=== PATIENT | female | born 1935 | race Caucasian/White ===

== ENCOUNTER → 2016-09-07 | Outpatient (CLI) | payer MEDICARE, OTHER ==
[~2016-09-07] MED LIST: ACIPHEX20 MG PO; AEROBID INHALER7 GM IH; ALBUTEROL0.09 MG/A1 IH; ALLOPURINOL300 MG PO; ANUSOL HC CREAM30 GM TP; AQUADEKS PO; ARICEPT 5MG PO; ASPIRIN E.C. 8181 MG PO; BENICAR HCT 251 TAB PO; BENICAR40 MG PO; BETA CAROTENE; BETA CAROTENE PO; BONIVA1 MG/ML MR; BONIVA150 MG PO; CARDIZEM CD 24240 MG PO; CATAPRES 0.1MG0.1 MG PO; CELEBREX 200MG200 MG PO; CENTRUM SILVER1 CTB PO; CENTRUM SILVER1 TA1 PO; CENTRUM SILVER1 TAB PO; CENTRUM1 TA1 PO; CEPHALEXIN500 M1 PO; COLACE 100100 MG/CAP PO; COMPLETE SENIOR1 TA1 PO; CRANBERRY FRUI405 MG PO; CYMBALTA 60MG60 MG PO; FENTANYL 25 MCG TOP; FENTANYL 50MCG TOP; FENTANYL 75MCG TD; FERRO-TIME325 MG PO; FERROUS SULFAT325 M2 PO; FISH OIL SUPER1 SGL PO; FISH OIL500 MG PO; FOLIC ACID 40400 MCG PO; GARLIC OIL 101000 MG PO; GARLIC SUPPLEM300 MG; HYZAAR 25 MG-101 TAB PO; IRON325 M1 PO; K-TAB20 PO; LASIX 20MG TABL20 MG PO; LIPITOR 10MG10 MG PO; LOTREL 10 MG-201 CAP PO; MILK OF MA400 MG/5 M PO; MIRALAX PA17 GM/Dose PO; MULTAQ400 MG PO; NEPHRO-VITE1 TA1 PO; NORCO 325 MG-101 TAB PO; NORCO 325 MG-7.1 TAB PO; NORVASC 5MG5 MG/TAB PO; PERCOCET 325 MG1 TA2 PO; PERCOCET 325 MG1 TAB PO; PHENERGAN 25 TA25 MG PO; PLAVIX 75MG TAB75 MG PO; PREMARIN .3MG0.3 MG PO; PREMARIN 0.60.625 M1 PO; PREMARIN 0.60.625 MG PO; PREMARIN VAG42.5 GM VG; PRILOSEC 20MG20 MG PO; PROAIR HFA0.09 MG/AC IH; PULMICORT180 MCG/Ac IH; QUALITY CHOICE325 MG; ROXICODONE 55 MG/TAB PO; THERAGRAN1 TA1 PO; TOPROL XL 50MG50 MG PO; TOPROL XL100 MG PO; TYLENOL 325MG325 MG PO; TYLENOL 500MG500 MG PO; ULTRAM 50MG TAB50 MG PO; VENTOLIN0.09 MG IH; VESICARE 5MG5 MG PO; VITAMIN C500 MG PO; XARELTO15 MG PO; ZOVIRAX800 MG PO; ZYLOPRIM 300MG300 MG PO
== END ==
LOC: COL.RAD 10:12
DX: M41.86 Other forms of scoliosis, lumbar region (principal); Z98.1 Arthrodesis status; R93.7 Abnormal findings on diagnostic imaging of other parts of musculoskeletal system
CPT/HCPCS: A9585

== ENCOUNTER 2016-09-21 14:45 | Outpatient (RCR) | payer MEDICARE, OTHER ==
[~2016-09-21 14:45] MED LIST changes: -ARICEPT 5MG PO; -BENICAR HCT 251 TAB PO; -BENICAR40 MG PO; -CATAPRES 0.1MG0.1 MG PO; -CENTRUM SILVER1 TAB PO; -CENTRUM1 TA1 PO; -FERRO-TIME325 MG PO; -NORVASC 5MG5 MG/TAB PO; -TOPROL XL100 MG PO; -TYLENOL 500MG500 MG PO; -VESICARE 5MG5 MG PO; -ZOVIRAX800 MG PO
[2016-09-23] MEDS ORDERED: ZOVIRAX800 MG PO (07:40)
[2016-09-23] MEDS ORDERED: CENTRUM1 TA1 PO (08:55)
[2016-09-23] MEDS ORDERED: NORVASC 5MG5 MG/TAB PO (08:56)
== END 2016-10-22 11:39 | disposition home or self-care (01) ==
LOC: WSPT 14:45
DX: Z47.89 Encounter for other orthopedic aftercare (principal); Z98.1 Arthrodesis status; M25.871 Other specified joint disorders, right ankle and foot
CPT/HCPCS: G8978-GP; G8979-GP; G8984-GP; G8985-GP; G8986-GP

== ENCOUNTER 2016-09-23 06:40 | Emergency (ER) | payer MEDICARE, OTHER ==
[~2016-09-23] VITALS: Ht 152.4 cm; Wt 70.0 kg
[2016-09-23 06:44] VITALS: BP 185/81; TEMP 98
[2016-09-23] MEDS ORDERED: ZOVIRAX800 MG PO (07:40)
[2016-09-23 07:59] VITALS: PULSE 62
[2016-09-23] MEDS ORDERED: CENTRUM1 TA1 PO (08:55)
[2016-09-23] MEDS ORDERED: NORVASC 5MG5 MG/TAB PO (08:56)
== END 2016-09-23 07:59 | disposition home or self-care (01) ==
LOC: COL.ER 06:40
DX: B02.9 Zoster without complications (principal)

== ENCOUNTER → 2016-11-15 | Outpatient (CLI) | payer MEDICARE, OTHER ==
[~2016-11-15] MED LIST changes: +ARICEPT 5MG PO; +BENICAR HCT 251 TAB PO; +BENICAR40 MG PO; +CATAPRES 0.1MG0.1 MG PO; +CENTRUM SILVER1 TAB PO; +CENTRUM1 TA1 PO; +FERRO-TIME325 MG PO; +NORVASC 5MG5 MG/TAB PO; +TOPROL XL100 MG PO; +TYLENOL 500MG500 MG PO; +VESICARE 5MG5 MG PO; +ZOVIRAX800 MG PO
== END ==
LOC: MC.RAD 09:47
DX: Z12.31 Encounter for screening mammogram for malignant neoplasm of breast (principal); R92.1 Mammographic calcification found on diagnostic imaging of breast

== ENCOUNTER 2016-12-26 14:30 | Outpatient (RCR) | payer MEDICARE, OTHER ==
[~2016-12-26 14:30] MED LIST changes: -ARICEPT 5MG PO; -BENICAR HCT 251 TAB PO; -BENICAR40 MG PO; -CATAPRES 0.1MG0.1 MG PO; -CENTRUM SILVER1 TAB PO; -FERRO-TIME325 MG PO; -TOPROL XL100 MG PO; -TYLENOL 500MG500 MG PO; -VESICARE 5MG5 MG PO
== END 2017-01-04 10:54 | disposition home or self-care (01) ==
LOC: WSPT 14:30
DX: R26.2 Difficulty in walking, not elsewhere classified (principal); Z98.1 Arthrodesis status; M25.511 Pain in right shoulder; M54.89 Other dorsalgia
CPT/HCPCS: G8978-GP; G8979-GP; G8980-GP

== ENCOUNTER 2017-02-08 18:35 | Inpatient (IN) | payer MEDICARE, OTHER ==
[~2017-02-08] VITALS: Ht 152.4 cm; Wt 67.0 kg
[2017-02-08 20:25] VITALS: BP 112/39; PULSE 50; TEMP 98.3
[2017-02-08 20:42] LABS: BASO # 0.1 (0.0-0.2); BASO % 0.7 % (0.0-2.0); EOS # 0.1 (0.0-0.7); EOS % 1.4 % (0-4.0); GRAN # 6.4 (1.4-6.5); GRAN % 75.2 % (42.2-75.2); LYMPH # 1.4 (1.2-3.4); LYMPH % 16.4 % (20.0-51.0); MEAN CELL VOLUME 86 fl (80.0-100.0); MEAN CORPUSCULAR HGB CONC 35 g/dl (33.0-37.0); MEAN PLATELET VOLUME 9.6 fl (7.4-10.4); MONO # 0.5 (0.1-0.6); MONO % 6.1 % (1.7-9.3); PLATELET COUNT 334 K/mm3 (130-400); RED BLOOD COUNT 3.87 M/mm3 (4.10-5.30); REDCELL DISTRIBUTION WIDTH-CV 13.5 % (11.5-14.5); WHITE BLOOD COUNT 8.5 K/mm3 (4.8-10.8)
[2017-02-08 20:43] LABS: HEMATOCRIT 33.3 % (37.0-47.0); HEMOGLOBIN 11.7 g/dl (12.5-16.0); MEAN CORPUSCULAR HEMOGLOBIN 30 pg (27.0-31.0)
[2017-02-08 20:49] LABS: ADJUSTED CALCIUM 8.8 mg/dL (8.4-10.2); ALBUMIN 3.7 gm/dL (3.5-5.0); BILIRUBIN,TOTAL 0.6 mg/dL (0.0-1.0); CALCIUM 8.6 mg/dL (8.4-10.2); CREATININE, serum 1.31 mg/dL (0.52-1.25); POTASSIUM 3.4 mmol/L (3.4-5.0); TOTAL PROTEIN 6.6 gm/dL (6.4-8.2)
[2017-02-08 22:35] LABS: CALCIUM 8.1 mg/dL (8.4-10.2); CREATININE, serum 1.24 mg/dL (0.52-1.25); POTASSIUM 3.7 mmol/L (3.4-5.0)
[2017-02-08 23:15] VITALS: BP 137/40; PULSE 50; TEMP 98.3
[2017-02-09 00:09] LABS: PH 7 (5-8); SQUAMOUS EPITHELIAL 0-2 /hpf; URINE APPEARANCE Cloudy; URINE BACTERIA None Seen /hpf; URINE BILIRUBIN Negative (NEGATIVE); URINE BLOOD Negative (NEGATIVE); URINE COLOR Yellow; URINE GLUCOSE Negative (NEGATIVE); URINE KETONE Negative (NEGATIVE); URINE RBC 0-2 /hpf; URINE UROBILINOGEN Negative (NEGATIVE); URINE WBC >50 /hpf
[2017-02-09 01:16] LABS: CREATININE, serum 1.17 mg/dL (0.52-1.25); POTASSIUM 3.3 mmol/L (3.4-5.0)
[2017-02-09 07:15] LABS: CALCIUM 8.5 mg/dL (8.4-10.2); CREATININE, serum 1.13 mg/dL (0.52-1.25); POTASSIUM 3.5 mmol/L (3.4-5.0)
[2017-02-09 08:24] VITALS: BP 156/41; PULSE 52
[2017-02-09] MEDS ORDERED: TOPROL XL100 MG PO (09:15)
[2017-02-09] MEDS ORDERED: FERRO-TIME325 MG PO (09:20)
[2017-02-09] MEDS ORDERED: CENTRUM SILVER1 TAB PO (09:28)
[2017-02-09] MEDS ORDERED: TYLENOL 500MG500 MG PO (09:40)
[2017-02-09] MEDS ORDERED: VESICARE 5MG5 MG PO (09:40)
[2017-02-09] MEDS ORDERED: CATAPRES 0.1MG0.1 MG PO (09:42)
[2017-02-09] MEDS ORDERED: BENICAR HCT 251 TAB PO (09:42)
[2017-02-09] MEDS ORDERED: ARICEPT 5MG PO (09:43)
[2017-02-09 11:26] VITALS: BP 136/69; PULSE 56
[2017-02-09 15:14] VITALS: BP 154/46; PULSE 51; TEMP 97.6
[2017-02-09 21:11] VITALS: BP 149/41; PULSE 55; TEMP 98.1
[2017-02-10] VITALS (8 sets, daily range): BP systolic 141–195; BP diastolic 42–88; PULSE 54–74; TEMP 97.8–98.6
[2017-02-10 12:04] LABS: CALCIUM 8.1 mg/dL (8.4-10.2); CREATININE, serum 0.69 mg/dL (0.52-1.25); MAGNESIUM 1.4 mg/dL (1.6-2.3); POTASSIUM 3.5 mmol/L (3.4-5.0)
[2017-02-11 03:41] VITALS: BP 165/50; PULSE 68; TEMP 99.1
[2017-02-11 07:41] VITALS: BP 188/59; PULSE 69; TEMP 97.7
[2017-02-11 09:25] VITALS: BP 163/57
[2017-02-11 11:00] LABS: CALCIUM 7.9 mg/dL (8.4-10.2); CREATININE, serum 0.67 mg/dL (0.52-1.25); MAGNESIUM 1.1 mg/dL (1.6-2.3); POTASSIUM 4.1 mmol/L (3.4-5.0)
[2017-02-11] MEDS ORDERED: BENICAR40 MG PO (11:23)
[2017-02-11 12:10] VITALS: BP 159/58; PULSE 70
== END 2017-02-11 15:11 | disposition home or self-care (01) | DRG 641 ==
LOC: MEDICAL 18:35
PROVIDERS: Family Medicine; Internal Medicine
DX: E87.1 Hypo-osmolality and hyponatremia (principal); N39.0 Urinary tract infection, site not specified; N17.9 Acute kidney failure, unspecified; I10 Essential (primary) hypertension; J45.909 Unspecified asthma, uncomplicated; Z87.891 Personal history of nicotine dependence; G89.29 Other chronic pain; E83.42 Hypomagnesemia; I48.91 Unspecified atrial fibrillation
CPT/HCPCS: 99223-AI; 99232-AI; 99233-AI; 99239; J0696; J3475; J3480; J7030

== ENCOUNTER → 2017-07-19 | Outpatient (CLI) | payer MEDICARE, OTHER ==
[~2017-07-19] MED LIST changes: +ARICEPT 5MG PO; +BENICAR HCT 251 TAB PO; +BENICAR40 MG PO; +CATAPRES 0.1MG0.1 MG PO; +CATAPRES-TTS 30.3 MG TD; +CENTRUM SILVER1 TAB PO; +DOXYCYCLINE 10100 MG PO; +FERRO-TIME325 MG PO; +HIBICLENS4% PO; +KLOR-CON M2020 MEQ PO; +LASIX 40MG TABL40 MG PO; +MUCINEX1200 MG PO; +TOPROL XL100 MG PO; +TYLENOL 500MG500 MG PO; +VESICARE 5MG5 MG PO
== END ==
LOC: ZCOL.LAB 14:35
DX: I83.018 Varicose veins of right lower extremity with ulcer other part of lower leg (principal)

== ENCOUNTER 2017-11-05 10:30 | Outpatient (RCR) | payer MEDICARE, OTHER | END 2017-11-09 08:05 | disposition home or self-care (01) | LOC: WSPT 10:30 | DX: I83.218 Varicose veins of right lower extremity with both ulcer of other part of lower extremity and inflammation (principal); L97.919 Non-pressure chronic ulcer of unspecified part of right lower leg with unspecified severity | CPT/HCPCS: G8978-GP; G8979-GP; G8980-GP ==

== ENCOUNTER → 2017-12-24 | Outpatient (CLI) | payer MEDICARE, OTHER | LOC: MC.RAD 10:25 | DX: Z12.31 Encounter for screening mammogram for malignant neoplasm of breast (principal); N64.89 Other specified disorders of breast; R92.0 Mammographic microcalcification found on diagnostic imaging of breast ==

== ENCOUNTER 2018-01-30 11:15 | Outpatient (RCR) | payer MEDICARE, OTHER | END 2018-03-26 | disposition home or self-care (01) | LOC: WSPT | DX: R60.0 Localized edema (principal) | CPT/HCPCS: G8978-GP; G8979-GP; G8980-GP ==

== ENCOUNTER 2018-04-04 15:30 | Outpatient (RCR) | payer MEDICARE, OTHER | END 2018-04-28 16:41 | disposition home or self-care (01) | LOC: WSPT 15:30 | DX: R29.898 Other symptoms and signs involving the musculoskeletal system (principal); M19.90 Unspecified osteoarthritis, unspecified site; R53.81 Other malaise | CPT/HCPCS: G8978-GP; G8979-GP; G8980-GP ==

== ENCOUNTER → 2018-06-30 | Outpatient (CLI) | payer MEDICARE, OTHER ==
[2018-06-30 14:59] LABS: CALCIUM 8.8 mg/dL (8.4-10.2); CREATININE, serum 0.93 mg/dL (0.52-1.25); POTASSIUM 3.8 mmol/L (3.4-5.0)
== END ==
LOC: COL.RAD 13:55
PROVIDERS: Family Medicine
DX: I10 Essential (primary) hypertension (principal); R09.02 Hypoxemia; J90 Pleural effusion, not elsewhere classified; J98.11 Atelectasis; Z96.612 Presence of left artificial shoulder joint; Z96.611 Presence of right artificial shoulder joint
CPT/HCPCS: Q9967

== ENCOUNTER 2018-07-14 06:49 | Outpatient (CLI) | payer MEDICARE, OTHER ==
[~2018-07-14] VITALS: Ht 152.4 cm; Wt 66.0 kg
[2018-07-14 07:37] VITALS: BP 188/57; PULSE 49; TEMP 98.2
[2018-07-14] MEDS ORDERED: LASIX 40MG TABL40 MG PO (08:05)
[2018-07-14] MEDS ORDERED: KLOR-CON M2020 MEQ PO (08:08)
[2018-07-14] MEDS ORDERED: OXYGEN MC (08:22)
[2018-07-14] MEDS ORDERED: FLONASEALLERGY NS (08:23)
[2018-07-14 08:29] LABS: BASO # 0.1 (0.0-0.2); BASO % 0.8 % (0.0-2.0); EOS # 0.7 (0.0-0.7); EOS % 5.9 % (0-4.0); GRAN # 8.8 (1.4-6.5); GRAN % 74.4 % (42.2-75.2); HEMATOCRIT 34.8 % (37.0-47.0); HEMOGLOBIN 11.1 g/dl (12.5-16.0); LYMPH # 1.3 (1.2-3.4); LYMPH % 11.2 % (20.0-51.0); MEAN CELL VOLUME 94 fl (80.0-100.0); MEAN CORPUSCULAR HEMOGLOBIN 30 pg (27.0-31.0); MEAN CORPUSCULAR HGB CONC 32 g/dl (33.0-37.0); MEAN PLATELET VOLUME 9.5 fl (7.4-10.4); MONO # 0.9 (0.1-0.6); MONO % 7.4 % (1.7-9.3); PLATELET COUNT 264 K/mm3 (130-400); RED BLOOD COUNT 3.72 M/mm3 (4.10-5.30); REDCELL DISTRIBUTION WIDTH-CV 14.3 % (11.5-14.5)
[2018-07-14] MEDS ORDERED: BETA CAROTENE PO (08:31)
[2018-07-14 08:46] LABS: ALBUMIN 3.1 gm/dL (3.5-5.0); BILIRUBIN,TOTAL 0.7 mg/dL (0.0-1.0); CALCIUM 8.6 mg/dL (8.4-10.2); CREATININE, serum 1.03 mg/dL (0.52-1.25); POTASSIUM 4.1 mmol/L (3.4-5.0); TOTAL PROTEIN 6.5 gm/dL (6.4-8.2)
[2018-07-14 08:50] VITALS: BP 201/50; PULSE 47; TEMP 97.6
[2018-07-14 08:55] VITALS: BP 165/45; PULSE 47
[2018-07-14 09:10] VITALS: BP 137/80; PULSE 46
[2018-07-14 09:13] VITALS: BP 183/66; PULSE 50
== END 2018-07-14 09:39 | disposition home or self-care (01) ==
LOC: SDCO 06:49
PROVIDERS: Internal Medicine Pulmonary Disease
DX: J90 Pleural effusion, not elsewhere classified (principal); I50.9 Heart failure, unspecified; J30.81 Allergic rhinitis due to animal (cat) (dog) hair and dander; Z99.81 Dependence on supplemental oxygen

== ENCOUNTER → 2018-07-16 | Outpatient (CLI) | payer MEDICARE, OTHER ==
[~2018-07-16] MED LIST changes: +FLONASEALLERGY NS; +OXYGEN MC
== END ==
LOC: COL.VAS 09:44
DX: I50.9 Heart failure, unspecified (principal); J90 Pleural effusion, not elsewhere classified; I34.0 Nonrheumatic mitral (valve) insufficiency; I07.1 Rheumatic tricuspid insufficiency; R09.02 Hypoxemia

== ENCOUNTER → 2018-08-07 | Outpatient (CLI) | payer MEDICARE, OTHER | LOC: COL.PUL 11:03 | DX: J90 Pleural effusion, not elsewhere classified (principal); I50.9 Heart failure, unspecified; R09.02 Hypoxemia ==

== ENCOUNTER 2018-10-18 20:17 | Inpatient (IN) | payer MEDICARE, OTHER ==
[2018-10-18] VITALS (7 sets, daily range): O2SAT 92–93
[~2018-10-18] VITALS: Ht 157.5 cm; Wt 68.0 kg
[2018-10-18 20:50] LABS: BASO # 0.1 (0.0-0.2); BASO % 0.6 % (0.0-2.0); EOS # 0.4 (0.0-0.7); EOS % 2.4 % (0-4.0); GRAN # 11.5 (1.4-6.5); GRAN % 79.5 % (42.2-75.2); HEMATOCRIT 35.7 % (37.0-47.0); HEMOGLOBIN 11.5 g/dl (12.5-16.0); LYMPH # 1.5 (1.2-3.4); LYMPH % 10.1 % (20.0-51.0); MEAN CELL VOLUME 92 fl (80.0-100.0); MEAN CORPUSCULAR HEMOGLOBIN 30 pg (27.0-31.0); MEAN CORPUSCULAR HGB CONC 32 g/dl (33.0-37.0); MEAN PLATELET VOLUME 10.4 fl (7.4-10.4); MONO % 6.8 % (1.7-9.3); PLATELET COUNT 304 K/mm3 (130-400); REDCELL DISTRIBUTION WIDTH-CV 14.6 % (11.5-14.5)
[2018-10-18 20:57] LABS: INR 1.2 (0.8-3.0); PROTHROMBIN TIME 13.9 SECONDS (9.7-12.8)
[2018-10-18 21:01] LABS: ALANINE AMINOTRANSFERASE 20 U/L (9-52); ALBUMIN 3.8 gm/dL (3.5-5.0); ALKALINE PHOSPHATASE 150 U/L (50-136); ANION GAP 9 mmol/L (7-16); AST,SGOT 31 U/L (15-37); BILIRUBIN,TOTAL 0.7 mg/dL (0.0-1.0); BLOOD UREA NITROGEN 40 mg/dL (7-17); CALCIUM 8.7 mg/dL (8.4-10.2); CARBON DIOXIDE 31 mmol/L (22-30); CREATINE KINASE 23 U/L (30-135); GLUCOSE 102 mg/dL (74-106); SODIUM 128 mmol/L (137-145); TOTAL PROTEIN 7.6 gm/dL (6.4-8.2)
[2018-10-18 21:15] LABS: CHLORIDE 89 mmol/L (98-107); POTASSIUM 6.9 mmol/L (3.4-5.0); TROPONIN-I < 0.012 ng/mL (0.000-0.035)
[2018-10-18 21:50] LABS: CALCIUM 8.5 mg/dL (8.4-10.2); CREATININE, serum 3.25 mg/dL (0.52-1.25)
[2018-10-18 22:03] LABS: POTASSIUM 7.2 mmol/L (3.4-5.0)
[2018-10-18 23:13] LABS: COLLECTION METHOD CLEAN CATCH
[2018-10-18] MEDS ORDERED: LASIX 20MG TABL20 MG PO (23:13)
[2018-10-18] MEDS ORDERED: MULTAQ400 MG PO (23:15)
[2018-10-18 23:19] LABS: HYALINE CAST >12 /lpf; MUCOUS Present /lpf; PH 6 (5-8); SQUAMOUS EPITHELIAL 0-2 /hpf; URINE APPEARANCE Clear; URINE BACTERIA Rare /hpf; URINE BILIRUBIN Negative (NEGATIVE); URINE BLOOD Negative (NEGATIVE); URINE COLOR Yellow; URINE GLUCOSE Negative (NEGATIVE); URINE KETONE Negative (NEGATIVE); URINE LEUKOCYTE ESTERASE Negative (NEGATIVE); URINE NITRATE Negative (NEGATIVE); URINE PROTEIN(semi-quant) Negative (NEGATIVE); URINE RBC 0-2 /hpf; URINE UROBILINOGEN Negative (NEGATIVE)
--- NOTE | 2018-10-18 23:19 | NUR ---
Report recieved from Kamila ELIAS
[2018-10-18] MEDS ORDERED: ALDACTONE 25MG25 M1 PO (23:33)
[2018-10-18] MEDS ORDERED: CATAPRES 0.1MG0.1 MG PO (23:34)
--- NOTE | 2018-10-18 23:40 | NUR ---
To ICU 8 via cart with RN at side.
--- NOTE | 2018-10-18 23:46 | NUR ---
75 mcg Fentanyl patch removed and wasted with Kerline Glover RN.
--- NOTE | 2018-10-18 23:48 | NUR ---
Dr. Landis here and speaks with daughters. Daughters to room and medical history reviewed. Medications reviewed. STAT patches applied to patient per orders. Clever to room and ICU visitor guidelines.
[2018-10-19] VITALS (575 sets, daily range): BP systolic 106–177; BP diastolic 50–63; PULSE 36–58; TEMP 97.5–98.6; O2SAT 83–99
[2018-10-19 00:18] LABS: CALCIUM 8.5 mg/dL (8.4-10.2); CREATININE, serum 3.26 mg/dL (0.52-1.25)
[2018-10-19] MEDS ORDERED: RT ADVAIR 228 DISKUS IH (00:37)
[2018-10-19] MEDS ORDERED: FLONASE SENSIM9.9 ML NS (00:39)
[2018-10-19] MEDS ORDERED: ROBITUSSIN A-C S1 M1 PO (00:40)
[2018-10-19] MEDS ORDERED: TRIAMCINOLONE A15 G3 TP (00:41)
[2018-10-19 01:01] LABS: ARTERIAL BLD GAS O2 SATURATION 92.9 % (92-100); ARTERIAL BLD GAS TCO2 CT 28.9; ARTERIAL BLOOD GAS BASE EXCESS 1.2 (-2-2); ARTERIAL BLOOD GAS HCO3 27.4 meq/L (22-26); ARTERIAL BLOOD GAS PCO2 50.1 mmHg (35-45); ARTERIAL BLOOD GAS PO2 69.6 mmHg (80-100); ARTERIAL BLOOD GAS pH 7.36 (7.35-7.45)
[2018-10-19 04:37] LABS: CALCIUM 8.3 mg/dL (8.4-10.2); CREATININE, serum 3.27 mg/dL (0.52-1.25)
[2018-10-19 04:39] LABS: POTASSIUM 6.3 mmol/L (3.4-5.0)
[2018-10-19 06:24] LABS: CALCIUM 8.2 mg/dL (8.4-10.2); CREATININE, serum 3.15 mg/dL (0.52-1.25); POTASSIUM 5.4 mmol/L (3.4-5.0)
--- NOTE | 2018-10-19 07:30 | NUR ---
Report given to Linad ELIAS
--- NOTE | 2018-10-19 08:00 | NUR ---
REPORT RECEIVED BY PRITI ELIAS.
[2018-10-19 08:23] LABS: CALCIUM 8.4 mg/dL (8.4-10.2); CREATININE, serum 3.06 mg/dL (0.52-1.25); POTASSIUM 5.4 mmol/L (3.4-5.0)
[2018-10-19 12:36] LABS: BASO # 0.1 (0.0-0.2); BASO % 0.3 % (0.0-2.0); EOS % 0.2 % (0-4.0); GRAN # 14.8 (1.4-6.5); GRAN % 86.5 % (42.2-75.2); HEMOGLOBIN 11.6 g/dl (12.5-16.0); LYMPH # 1.2 (1.2-3.4); LYMPH % 7.2 % (20.0-51.0); MEAN CELL VOLUME 91 fl (80.0-100.0); MEAN CORPUSCULAR HEMOGLOBIN 29 pg (27.0-31.0); MEAN CORPUSCULAR HGB CONC 32 g/dl (33.0-37.0); MEAN PLATELET VOLUME 10.2 fl (7.4-10.4); MONO # 0.9 (0.1-0.6); MONO % 5.4 % (1.7-9.3); PLATELET COUNT 302 K/mm3 (130-400); RED BLOOD COUNT 3.95 M/mm3 (4.10-5.30); REDCELL DISTRIBUTION WIDTH-CV 14.6 % (11.5-14.5)
[2018-10-19 12:46] LABS: CALCIUM 8.3 mg/dL (8.4-10.2); CREATININE, serum 2.65 mg/dL (0.52-1.25); POTASSIUM 4.7 mmol/L (3.4-5.0)
--- NOTE | 2018-10-19 14:07 | NUR ---
Patient lives at home with his daughter (Klaudia) in [place], [place] and plans to return home with family support upon his recovery. Patient uses a walker for mobility assistance, his primary care physician is Dr. Dion Dawkins, his pharmacy [facility], and he does have advance directives completed. Patient's daughter (Klaudia) can be reached at [phone] or [phone] and his daughter (Shanna) can be reached at [phone]. No further needs at this time and social servies will follow as needed.
--- NOTE | 2018-10-19 18:30 | NUR ---
Pt arrived to room 317 at this time. Breathing even and unlabored on 4L O2 via NC. Pt denies pain or needs at this time. Tae DUVAL. Family at bedside. Call light mary anne bender.
--- NOTE | 2018-10-19 18:33 | NUR ---
PT TRANSFERRED VIA WHEELCHAIR TO MEDICAL ROOM 317. PT'S BELONGINGS TRANSFERRED WITH PATIENT. CONTACT MADE WITH GHASSAN ELIAS UPON TRANSFER.
[2018-10-19 20:42] LABS: CALCIUM 7.9 mg/dL (8.4-10.2); CREATININE, serum 2.18 mg/dL (0.52-1.25); POTASSIUM 4.5 mmol/L (3.4-5.0)
--- NOTE | 2018-10-19 21:00 | NUR ---
Patient assessed at this time. Denies having pain and discomfort. Denies having SOB and dyspnea. Oxygen on at 3.5 l/min via NC. LS CTA. Respirations even and unlabored. Indwelling edge catheter patent, draining clear yellow urine via dependent drainage. NS running at 150 ml/hr to left AC. Peripheral INT to right AC flushed with 5 ml NS, patent. Both sites are without redness, warmth, swelling, and pain. Resting in bed at this time. Denies having any questions or concerns at this time. Call light is within reach.
--- NOTE | 2018-10-20 03:28 | NUR ---
Patient sat in bathroom for about 20 minutes trying to have a BM, but was unable to have a BM. Bowel sounds active x 4. Abdomen soft and non-tender. Assisted back to bed. Denies having any other needs at this time. Call light is within reach. NS continues at 150 ml/hr.
[2018-10-20 04:59] VITALS: BP 110/54; PULSE 58; TEMP 97.3
--- NOTE | 2018-10-20 06:06 | NUR ---
Denies having pain and discomfort at this time. NS running at 150 ml/hr. Indwelling edge catheter patent, draining clear yellow urine via dependent drainage. Voices no needs or concern at this time. Resting in bed with call light within reach.
[2018-10-20 06:09] LABS: BASO # 0.1 (0.0-0.2); BASO % 0.7 % (0.0-2.0); EOS # 0.2 (0.0-0.7); EOS % 1.8 % (0-4.0); GRAN # 8.2 (1.4-6.5); GRAN % 79.6 % (42.2-75.2); LYMPH # 1.1 (1.2-3.4); LYMPH % 10.5 % (20.0-51.0); MEAN CELL VOLUME 92 fl (80.0-100.0); MEAN CORPUSCULAR HEMOGLOBIN 30 pg (27.0-31.0); MEAN CORPUSCULAR HGB CONC 32 g/dl (33.0-37.0); MEAN PLATELET VOLUME 10.4 fl (7.4-10.4); MONO # 0.7 (0.1-0.6); PLATELET COUNT 253 K/mm3 (130-400); RED BLOOD COUNT 3.39 M/mm3 (4.10-5.30); REDCELL DISTRIBUTION WIDTH-CV 14.7 % (11.5-14.5)
[2018-10-20 06:11] LABS: HEMATOCRIT 31.3 % (37.0-47.0)
[2018-10-20 06:22] LABS: CALCIUM 8.1 mg/dL (8.4-10.2); CREATININE, serum 1.87 mg/dL (0.52-1.25); POTASSIUM 4.5 mmol/L (3.4-5.0)
[2018-10-20 07:50] VITALS: BP 130/50; PULSE 55; TEMP 99
--- NOTE | 2018-10-20 08:27 | NUR ---
Pt alert but confused to place and time. Pt has edge intact and dependent with kelly urine return. Pt denies pain. Pt has oxygen via nasal cannula at 3.5L and dyspnes upon exertion. Pt RAC IV infiltrated with normal saline. Moved normal saline to left AC running at 150ml/hr. Pt RAC IV taken out with tip intact. Pt has family at bedside and call light in reach. Pt given juice and breakfast ordered d/t blood sugar 63 this am. Pt drank juice 100%.
[2018-10-20 11:44] VITALS: BP 159/50; PULSE 60; TEMP 98.1
--- NOTE | 2018-10-20 12:37 | NUR ---
First visit from the fine chemicals operator. No needs right now.
--- NOTE | 2018-10-20 12:51 | NUR ---
Pt alert to person but confused to time and place at times. Pt family at bedside. Pt IV to left ac patent. Pt denies pain. Pt has call light in reach and edge patent with kelly clear uring return noted. Pt denies further needs at this time.
[2018-10-20 16:58] VITALS: BP 163/55; PULSE 57; TEMP 98.2
--- NOTE | 2018-10-20 18:18 | NUR ---
Pt eating now and requests to wait until done to take out edge as ordered. Pt has call light in reach and denies needs.
--- NOTE | 2018-10-20 18:46 | NUR ---
Pt report given to Kiara and pt still eating.
[2018-10-20 19:52] VITALS: BP 177/51; PULSE 66; TEMP 98.8
--- NOTE | 2018-10-20 20:42 | NUR ---
Patient assessed at this time. Denies having pain and discomfort. Fentanyl patch to right chest area. RUE has decreased edema. Denies pain and discomfort to area. Area with red/purple bruising. Periperal INT to left AC is patent, and without redness, warmth, swelling, and pain. 1+ edema to bilateral ankles. Pedal pulses present and equal bilaterally. BLE without redness, warmth, swelling, and pain. Indwelling edge catheter removed at this time. Tolerated well. Denies having any questions or concerns at this time.
[2018-10-20 23:29] VITALS: BP 129/34; PULSE 59; TEMP 98.9
--- NOTE | 2018-10-21 01:54 | NUR ---
HORSE RACING MANAGER reports patient has been able to void since edge catheter was discontinued. Patient denies having burning, pain, and discomfort with urination. Denies having feelings of urinary frequency, urgency, and retention. Resting in bed with eyes closed at this time. Call light is within reach.
[2018-10-21 03:55] VITALS: BP 134/33; PULSE 65; TEMP 98.6
--- NOTE | 2018-10-21 05:46 | NUR ---
Continues to deny having pain and discomfort. Voices no question or concerns at this time. Continues on oxygen at 3 L/min via NC. Denies having burning, pain, and discomfort with urination. Resting in bed at this time. Call light is within reach.
[2018-10-21 06:56] LABS: BASO # 0.1 (0.0-0.2); BASO % 0.8 % (0.0-2.0); EOS # 0.3 (0.0-0.7); EOS % 2.7 % (0-4.0); GRAN # 8.1 (1.4-6.5); GRAN % 73.8 % (42.2-75.2); LYMPH # 1.5 (1.2-3.4); LYMPH % 13.6 % (20.0-51.0); MEAN CELL VOLUME 93 fl (80.0-100.0); MEAN CORPUSCULAR HGB CONC 31 g/dl (33.0-37.0); MEAN PLATELET VOLUME 10.5 fl (7.4-10.4); MONO # 0.9 (0.1-0.6); MONO % 8.6 % (1.7-9.3); PLATELET COUNT 260 K/mm3 (130-400); RED BLOOD COUNT 3.33 M/mm3 (4.10-5.30); REDCELL DISTRIBUTION WIDTH-CV 14.8 % (11.5-14.5)
[2018-10-21 07:09] LABS: CALCIUM 8.6 mg/dL (8.4-10.2); CREATININE, serum 1.2 mg/dL (0.52-1.25); MAGNESIUM 1.9 mg/dL (1.6-2.3); POTASSIUM 4.3 mmol/L (3.4-5.0)
[2018-10-21 07:21] LABS: HEMOGLOBIN 9.7 g/dl (12.5-16.0); MEAN CORPUSCULAR HEMOGLOBIN 29 pg (27.0-31.0)
--- NOTE | 2018-10-21 07:30 | NUR ---
Report received from JADA Craig
[2018-10-21 09:29] VITALS: BP 116/71; PULSE 61; TEMP 98.2
[2018-10-21 12:52] VITALS: BP 185/53; PULSE 73; TEMP 98.4
--- NOTE | 2018-10-21 13:15 | NUR ---
CALL PLACED TO JADA GALLAGHER TO ASK ABOUT PLAN OF CARE. SHE STATES THAT SHE WILL BE ROUNDING WITH DR. STEEN SOON.
[2018-10-21 14:25] VITALS: BP 140/50; PULSE 67
--- NOTE | 2018-10-21 14:27 | NUR ---
MESSAGE LEFT WITH VARUN BARRERA FOR REFERRAL TO [facility] FROM DR. STEEN FOR THIS PATIENT
--- NOTE | 2018-10-21 16:43 | NUR ---
ROSA and SW student met with the patient and patient's daughter, Alejandra, to review discharge plan. An [facility] consult had been ordered for the patient. [facility] Director, Ita, reports that they are unable to accept the patient. ROSA informed the patient and patient's daughter. The patient and patient's daughter report that the plan is still for the patient to return home. The patient's daughter reports that she understands that she can consult the patient's PCP, if they are in need of any additional services after discharge. The patient is to discharge back home with her daughter later today, 10/21. ROSA presented and explained the IM form to the patient and patient's daughter. The patient verbalized understanding, signed, and she was provided a copy. No additional needs at this time.
[2018-10-21 16:53] VITALS: BP 154/36; PULSE 64; TEMP 99.6
--- NOTE | 2018-10-21 16:54 | NUR ---
INFORMED BY [facility] BAND SAWYER, VARUN BARRERA, THAT THE PATIENT IS NEAR BASELINE AND DOES NOT QUALIFY FOR [facility] STAY. I SPOKE WITH FAMILY AND PATIENT AND THEY ARE OK WITH DISCHARGING HOME. THIS IS COMMUNICATED WITH JADA GALLAGHER FOR DR. STEEN. SHE STATES SHE WILL TELL HIM WHAT THE PATIENT AND FAMILY WANT AND WILL START THE DISCHARGE PROCESS.
--- NOTE | 2018-10-21 17:15 | NUR ---
Dr. Landis calls at this time. I explain that the hospitalist has cleared patient for discharge. He is informed that he is the attending. He states that he will be here to discharge patient this evening.
--- NOTE | 2018-10-21 18:26 | NUR ---
Dr. Landis here to see patient. He states that she will discharge and can follow up with him in 2 weeks at the office.
--- NOTE | 2018-10-21 18:40 | NUR ---
MEDS FOR DISCHARGE REVIEWED WITH DR. STEEN AT THIS TIME. HE GIVES VERBAL ORDER FOR DISCHARGE
--- NOTE | 2018-10-21 19:15 | NUR ---
DISCHARGE PACKET REVIEWED. INSTRUCTIONS TO MAKE FOLLOW UP APPTS WITH DR. STEEN AND DR. COY 1-2 WEEKS AFTER DISCHARGE. PATIENT AND DAUGHTER VERBALIZE UNDERSTANDING. ALSO REVIEWED EXTENSIVELY THE MEDICATIONS WHICH ARE DUE TO BE STOPPED. THEY VERBALIZE UNDERSTANDING. PATIENT WHEELED OUT TO ENTRANCE BY ELECTRONIC BENCH TECHNICIAN AND ASSISTED INTO VEHICLE.
== END 2018-10-21 19:15 | disposition home or self-care (01) | DRG 308 ==
LOC: COL.ER 20:17 → ICU 22:33 → MEDICAL 10-19 20:01
PROVIDERS: Emergency Medicine; Hospitalist; Internal Medicine; Nurse Practitioner Family; Physician Assistant; ADMIT Internal Medicine Interventional Cardiology
DX: I49.5 Sick sinus syndrome (principal); J96.01 Acute respiratory failure with hypoxia; I13.0 Hypertensive heart and chronic kidney disease with heart failure and stage 1 through stage 4 chronic kidney disease, or unspecified chronic kidney disease; N17.9 Acute kidney failure, unspecified; E87.1 Hypo-osmolality and hyponatremia; I50.32 Chronic diastolic (congestive) heart failure; R00.1 Bradycardia, unspecified; E87.5 Hyperkalemia; N18.9 Chronic kidney disease, unspecified; E78.5 Hyperlipidemia, unspecified; I48.91 Unspecified atrial fibrillation; J44.9 Chronic obstructive pulmonary disease, unspecified; Z87.891 Personal history of nicotine dependence; F03.90 Unspecified dementia, unspecified severity, without behavioral disturbance, psychotic disturbance, mood disturbance, and anxiety
CPT/HCPCS: 99223; 99232-AI; J1610; J1644; J1815; J2405; J7030; J7040

== ENCOUNTER → 2019-01-02 | Outpatient (CLI) | payer MEDICARE, OTHER ==
[~2019-01-02] MED LIST changes: +ALDACTONE 25MG25 M1 PO; +FLONASE SENSIM9.9 ML NS; +ROBITUSSIN A-C S1 M1 PO; +RT ADVAIR 228 DISKUS IH; +TRIAMCINOLONE A15 G3 TP
== END ==
LOC: MC.RAD 13:30
DX: Z12.31 Encounter for screening mammogram for malignant neoplasm of breast (principal)

== ENCOUNTER → 2019-01-15 | Outpatient (CLI) | payer MEDICARE, OTHER ==
[~2019-01-15] MED LIST changes: +ACIDOPHILIS PO; +CRANBERRY FRUI425 MG PO; +FOLIC ACID0.4 MG PO; +OMEGA-3 1000 MG1 CAP PO; +SUPER CALCIUM W1 TA2 PO; +VITAMINC1000TA PO
== END ==
LOC: COL.RAD 12:02
DX: I27.20 Pulmonary hypertension, unspecified (principal); Z96.611 Presence of right artificial shoulder joint; Z96.612 Presence of left artificial shoulder joint; Z87.81 Personal history of (healed) traumatic fracture; Z98.1 Arthrodesis status
CPT/HCPCS: A9540; A9567

== ENCOUNTER 2019-01-19 15:35 | Outpatient (CLI) | payer MEDICARE, OTHER ==
[~2019-01-19] VITALS: Ht 157.5 cm; Wt 62.3 kg
[~2019-01-19 15:35] MED LIST changes: -ACIDOPHILIS PO; -CRANBERRY FRUI425 MG PO; -FOLIC ACID0.4 MG PO; -OMEGA-3 1000 MG1 CAP PO; -SUPER CALCIUM W1 TA2 PO; -VITAMINC1000TA PO
[2019-01-19] MEDS ORDERED: MULTAQ400 MG PO (15:57)
[2019-01-19] MEDS ORDERED: NORVASC 5MG5 MG/TAB PO (15:59)
[2019-01-19] MEDS ORDERED: RT ADVAIR 228 DISKUS IH (16:00)
[2019-01-19] MEDS ORDERED: LIPITOR 10MG10 MG PO (16:02)
[2019-01-19] MEDS ORDERED: ARICEPT 5MG PO (16:05)
[2019-01-19] MEDS ORDERED: VITAMINC1000TA PO (16:07)
[2019-01-19] MEDS ORDERED: OMEGA-3 1000 MG1 CAP PO (16:07)
[2019-01-19] MEDS ORDERED: CRANBERRY FRUI425 MG PO (16:08)
[2019-01-19] MEDS ORDERED: ACIDOPHILIS PO (16:09)
[2019-01-19] MEDS ORDERED: SUPER CALCIUM W1 TA2 PO (16:10)
[2019-01-19] MEDS ORDERED: FOLIC ACID0.4 MG PO (16:10)
[2019-01-19 16:21] VITALS: BP 98/52; PULSE 102; TEMP 98
== END 2019-01-19 17:08 | disposition home or self-care (01) ==
LOC: EUO 15:35
DX: M81.0 Age-related osteoporosis without current pathological fracture (principal)
CPT/HCPCS: A9540; A9567; J3489

== ENCOUNTER 2019-02-27 10:22 | Observation (INO) | payer MEDICARE, OTHER ==
[2019-02-27] VITALS (9 sets, daily range): BP systolic 102–158; BP diastolic 48–76; PULSE 56–92; TEMP 98.4
[~2019-02-27] VITALS: Ht 157.5 cm; Wt 62.3 kg
[~2019-02-27 10:22] MED LIST changes: +ACIDOPHILIS PO; +CRANBERRY FRUI425 MG PO; +FOLIC ACID0.4 MG PO; +OMEGA-3 1000 MG1 CAP PO; +SUPER CALCIUM W1 TA2 PO; +VITAMINC1000TA PO
[2019-02-27 11:03] LABS: HEMATOCRIT 37.4 % (37.0-47.0); HEMOGLOBIN 12.4 g/dl (12.5-16.0); MEAN CELL VOLUME 89 fl (80.0-100.0); MEAN CORPUSCULAR HEMOGLOBIN 30 pg (27.0-31.0); MEAN CORPUSCULAR HGB CONC 33 g/dl (33.0-37.0); MEAN PLATELET VOLUME 9.9 fl (7.4-10.4); PLATELET COUNT 487 K/mm3 (130-400); RED BLOOD COUNT 4.19 M/mm3 (4.10-5.30); REDCELL DISTRIBUTION WIDTH-CV 13.5 % (11.5-14.5)
--- NOTE | 2019-02-27 11:06 | NUR ---
Pt and family notified that laborer heading is having some xray equipment issues and that all procedures are on a minimum of a one hour delay and might possible need to be rescheduled if the equipment issue cannot be resolved. The pt and daughter verbalized understanding and wish to wait and see if the issue can be resolved. Dr. Landis notified as well.
[2019-02-27 11:08] LABS: INR 1.1 (0.8-3.0); PROTHROMBIN TIME 13.2 SECONDS (9.7-12.8)
[2019-02-27] MEDS ORDERED: CEROVITE SENIOR1 TA1 PO (11:14)
[2019-02-27] MEDS ORDERED: MASON NATURAL325 MG PO (11:14)
[2019-02-27] MEDS ORDERED: VENTOLIN0.09 MG IH (11:15)
[2019-02-27 11:40] LABS: CALCIUM 8.2 mg/dL (8.4-10.2); CREATININE, serum 0.86 (0.52-1.25); POTASSIUM 3.9 mmol/L (3.4-5.0)
--- NOTE | 2019-02-27 14:59 | NUR ---
SEE MERGE REPORT FOR MEDICATION ADMINISTRATION TIMES WELL INTRA/POST SEDATION ASSESSMENTS.
--- NOTE | 2019-02-27 16:36 | NUR ---
Back from Survey Data Technician. Pressure dressing noted at right groin, soft to palpation around site, and good pedal pulses bilat. VSS. Daughter bedside
--- NOTE | 2019-02-27 18:48 | NUR ---
Report given to Wendi ELIAS. Will transfer pt to Medical floor room 312 by bed
[2019-02-28 00:37] VITALS: BP 154/63; PULSE 86; TEMP 100.6
--- NOTE | 2019-02-28 02:43 | NUR ---
Pt resting in bed, does c/o of chronic back pain. Pt has Fent patch to upper back placed prior to arrival to hosp. Pt underwent heart cath today with post procedure bleedng and was therefore admitted overnight. Flat time up at 1130 and drsg was removed and site assessed. No bleeding or hematoma noted. pt able to get out of bed to restroom and tolerated well. VSS at this time, pt on tele and to get some rest. Will continue to monitor and update the providers as needed.
--- NOTE | 2019-02-28 03:02 | NUR ---
Drsg changed, no drsg or hematoma noted, flattime complete. Pt able to get up restroom.
[2019-02-28 03:05] VITALS: BP 158/48; PULSE 61; TEMP 99.1
[2019-02-28 04:22] VITALS: BP 153/49; PULSE 60; TEMP 99
[2019-02-28 08:41] VITALS: BP 135/60; PULSE 64; TEMP 98.4
[2019-02-28 09:00] VITALS: BP 135/60; PULSE 64; TEMP 98.4
--- NOTE | 2019-02-28 09:00 | NUR ---
GAUZE APPLIED OVER CATH SITE HELD IN PLACE WITH TEGADERM.
--- NOTE | 2019-02-28 09:00 | NUR ---
PATIENT ASSESSMENT COMPLETED. SHE DENIES ANY QUESTIONS AND IS HOPING TO BE DISCHARGED TODAY. DOES NOT WANT TO EAT BREAKFAST AT THIS TIME. MORNING MEDICAITONS TO BE GIVEN.
--- NOTE | 2019-02-28 10:23 | NUR ---
Plan: Patient plans to return home with DTR Klaudia as care support. Patient resides in [place] outside of [place]. Assess: SW met with patient and DTR in room. DTR translated Swazi. Patient can understand and speak some Mosotho. Patient reports that she is ready to go home. Patient reports that she has 02 at 2 liters continuous at home, uses a walker everyday, and has a toliet seat riser. Patient declined home health while DTR is living with her. Patient reports that her PCP is Dr. Palafox and the next appointment is Mar 16 at 09:30 am. Patient reports taht she uses [facility] for short term medications and [facility] for snf. Action: SW educated on resources in community. No additional concerns at this time.
--- NOTE | 2019-02-28 10:40 | NUR ---
PATIENT DISCHARGE INFORMATION REVIEWED WITH PATIENT AND DAUGHTER WHOM SHE LIVES WITH. HOSPITAL MAR WAS PRINTED AND PROVIDED TO ALLOW HER TO SEE WHAT MEDICAITONS I GAVE THIS MORNING. DAUGHTER STATES THAT ELYSIA HAS A FOLLOW UP WITH DR. STEEN ON SCHEDULED ALREADY. THEY DENY FURTHER QUESTIONS AT THIS TIME. IV IS REMOVED WITHOUT DIFFICULTY. PATIENT SKIN IS VERY THIN BUT NO TEARING OCCURED
== END 2019-02-28 10:50 | disposition home or self-care (01) ==
LOC: COL.CAR 10:22 → MEDICAL 17:58 → COL.CAR 19:25 → MEDICAL 19:27
PROVIDERS: ADMIT Internal Medicine Interventional Cardiology
DX: I25.10 Atherosclerotic heart disease of native coronary artery without angina pectoris (principal); I70.201 Unspecified atherosclerosis of native arteries of extremities, right leg; I73.89 Other specified peripheral vascular diseases; I48.0 Paroxysmal atrial fibrillation; R26.81 Unsteadiness on feet; J44.9 Chronic obstructive pulmonary disease, unspecified; M79.605 Pain in left leg; M79.604 Pain in right leg; G89.29 Other chronic pain; M54.9 Dorsalgia, unspecified; Z79.899 Other long term (current) drug therapy; Z95.818 Presence of other cardiac implants and grafts; Z99.81 Dependence on supplemental oxygen; Z82.49 Family history of ischemic heart disease and other diseases of the circulatory system; Z87.891 Personal history of nicotine dependence
CPT/HCPCS: C1760; C1769; C1894; G0378; G0379; J1644; J2250; J3010; Q9967

== ENCOUNTER 2019-05-07 08:00 | Outpatient (RCR) | payer MEDICARE, OTHER ==
[2019-04-10 10:56] VITALS: BP 153/64; PULSE 74; TEMP 98.2
--- NOTE | 2019-04-10 11:15 | NUR ---
PICC intact right upper arm with no disk present. with sterile technique right upper arm PICC dressing change done with insertion site cleansed with chloraprep x 1, chlorhexidine impregnated disk applied, skin prep, stat lock, and tegaderm applied. no signs or symptoms of IV complications noted. no concerns voiced.
[2019-04-11 08:00] VITALS: BP 118/60; PULSE 90; TEMP 98.1
[2019-04-12 07:57] VITALS: BP 139/43; PULSE 81; TEMP 98.3
[2019-04-13 08:07] VITALS: BP 127/37; PULSE 75; TEMP 98
[2019-04-14 08:32] VITALS: BP 132/46; PULSE 66; TEMP 98
[2019-04-15 08:31] VITALS: BP 140/49; PULSE 78; TEMP 98.1
[2019-04-15 08:45] LABS: ALBUMIN 3.8 gm/dL (3.5-5.0); BILIRUBIN,TOTAL 0.8 mg/dL (0.0-1.0); C-REACTIVE PROTEIN 0.9 mg/dL (0.0-0.9); CALCIUM 8.8 mg/dL (8.4-10.2); CREATININE, serum 0.74 (0.52-1.25); POTASSIUM 3.7 mmol/L (3.4-5.0); TOTAL PROTEIN 7.2 gm/dL (6.4-8.2)
[2019-04-15 09:25] LABS: ERYTHROCYTE SEDIMENTATION RATE 32 mm/hr (0-30)
[2019-04-15 10:08] LABS: HEMOGLOBIN 10.6 g/dl (12.5-16.0); MEAN CORPUSCULAR HEMOGLOBIN 30 pg (27.0-31.0); RED BLOOD COUNT 3.58 M/mm3 (4.10-5.30)
[2019-04-15 10:09] LABS: HEMATOCRIT 34.1 % (37.0-47.0); MEAN CELL VOLUME 95 fl (80.0-100.0); MEAN CORPUSCULAR HGB CONC 31 g/dl (33.0-37.0); MEAN PLATELET VOLUME 10.5 fl (7.4-10.4); PLATELET COUNT 371 K/mm3 (130-400); REDCELL DISTRIBUTION WIDTH-CV 17.4 % (11.5-14.5)
[2019-04-15 10:10] LABS: BAND 1 % (0-10); BASOPHIL 1 % (0-2); EOSINOPHIL 10 % (0-4); LYMPHOCYTE 20 % (20.0-51.0); NEUTROPHILS 60 % (42.0-75.2)
[2019-04-15 10:11] LABS: ANISOCYTOSIS 1+; PLATELET ESTIMATE NORMAL (NORMAL)
[2019-04-16 08:19] VITALS: BP 133/46; PULSE 73; TEMP 98
[2019-04-17 08:11] VITALS: BP 138/46; PULSE 64; TEMP 98.2
--- NOTE | 2019-04-17 08:30 | NUR ---
PICC intact right upper arm. With sterile technique right upper arm PICC dressing change done with insertion site cleansed with ChloraPrep 1, chlorhexidine impregnated disc applied, skin prep, StatLock, and Tegaderm applied. No signs or symptoms of IV complications noted. No concerns voiced. Arm wrapped with Nik to protect catheter.
[2019-04-18 08:13] VITALS: BP 144/61; PULSE 65; TEMP 98
[2019-04-19 08:12] VITALS: BP 125/41; PULSE 64; TEMP 98.1
[2019-04-20 08:14] VITALS: BP 143/43; PULSE 65; TEMP 98
[2019-04-21 08:09] VITALS: BP 135/41; PULSE 61; TEMP 98.2
[2019-04-22 08:32] VITALS: BP 127/43; PULSE 58; TEMP 97.7
[2019-04-22 08:36] LABS: BASO # 0.1 (0.0-0.2); EOS # 0.6 (0.0-0.7); EOS % 6.7 % (0-4.0); GRAN # 6.5 (1.4-6.5); GRAN % 72.1 % (42.2-75.2); HEMOGLOBIN 10.5 g/dl (12.5-16.0); LYMPH # 1.1 (1.2-3.4); LYMPH % 11.6 % (20.0-51.0); MEAN CELL VOLUME 96 fl (80.0-100.0); MEAN CORPUSCULAR HEMOGLOBIN 31 pg (27.0-31.0); MEAN CORPUSCULAR HGB CONC 32 g/dl (33.0-37.0); MEAN PLATELET VOLUME 9.5 fl (7.4-10.4); MONO # 0.7 (0.1-0.6); MONO % 7.9 % (1.7-9.3); PLATELET COUNT 310 K/mm3 (130-400); RED BLOOD COUNT 3.42 M/mm3 (4.10-5.30); REDCELL DISTRIBUTION WIDTH-CV 17.2 % (11.5-14.5)
[2019-04-22 08:50] LABS: ALBUMIN 3.6 gm/dL (3.5-5.0); C-REACTIVE PROTEIN 1.5 mg/dL (0.0-0.9); CALCIUM 8.7 mg/dL (8.4-10.2); CREATININE, serum 0.9 (0.52-1.25); POTASSIUM 3.5 mmol/L (3.4-5.0); TOTAL PROTEIN 7.1 gm/dL (6.4-8.2)
[2019-04-22 08:59] LABS: HEMATOCRIT 32.8 % (37.0-47.0)
[2019-04-22 09:57] LABS: ERYTHROCYTE SEDIMENTATION RATE 56 mm/hr (0-30)
[2019-04-23 08:17] VITALS: BP 135/42; PULSE 53; TEMP 98.2
[2019-04-24 08:23] VITALS: BP 120/57; PULSE 72; TEMP 98
--- NOTE | 2019-04-24 08:50 | NUR ---
PICC intact right upper arm with sterile dressing change done with insertion site cleansed with chloraprep x 1, chlorhexidine imgregnated disk applied, skin prep, stat lock, and tegaderm applied. no signs or symptoms of IV complications noted. no concerns voiced. re-wrapped with hoang to protect catheter.
[2019-04-25 08:32] VITALS: BP 135/50; PULSE 56; TEMP 98.1
[2019-04-26 08:19] VITALS: BP 140/51; PULSE 58; TEMP 97.9
[2019-04-27 08:11] VITALS: BP 155/35; PULSE 57; TEMP 98.1
[2019-04-28 08:06] VITALS: BP 126/40; PULSE 58; TEMP 98.3
[2019-04-29 08:21] VITALS: BP 138/42; PULSE 51; TEMP 98
[2019-04-29 08:33] LABS: BASO # 0.1 (0.0-0.2); BASO % 1.3 % (0.0-2.0); EOS # 0.7 (0.0-0.7); EOS % 8.3 % (0-4.0); GRAN # 5.3 (1.4-6.5); GRAN % 61.7 % (42.2-75.2); HEMOGLOBIN 11.2 g/dl (12.5-16.0); LYMPH # 1.7 (1.2-3.4); LYMPH % 20.3 % (20.0-51.0); MEAN CELL VOLUME 96 fl (80.0-100.0); MEAN CORPUSCULAR HEMOGLOBIN 31 pg (27.0-31.0); MEAN CORPUSCULAR HGB CONC 32 g/dl (33.0-37.0); MEAN PLATELET VOLUME 9.6 fl (7.4-10.4); MONO # 0.7 (0.1-0.6); MONO % 7.9 % (1.7-9.3); PLATELET COUNT 369 K/mm3 (130-400); RED BLOOD COUNT 3.64 M/mm3 (4.10-5.30); REDCELL DISTRIBUTION WIDTH-CV 16.2 % (11.5-14.5)
[2019-04-29 08:42] LABS: ALBUMIN 3.8 gm/dL (3.5-5.0); BILIRUBIN,TOTAL 0.5 mg/dL (0.0-1.0); CALCIUM 8.3 mg/dL (8.4-10.2); CREATININE, serum 0.91 (0.52-1.25); POTASSIUM 3.2 mmol/L (3.4-5.0); TOTAL PROTEIN 7.3 gm/dL (6.4-8.2)
[2019-04-29 08:51] LABS: HEMATOCRIT 34.9 % (37.0-47.0)
[2019-04-29 09:14] LABS: ERYTHROCYTE SEDIMENTATION RATE 48 mm/hr (0-30)
[2019-04-30 08:00] VITALS: BP 151/35; PULSE 54; TEMP 98.1
[2019-05-01] VITALS (8 sets, daily range): BP systolic 118–167; BP diastolic 48–81; PULSE 34–67; TEMP 97.9
--- NOTE | 2019-05-01 08:45 | NUR ---
PICC intact right upper arm with sterile dressing change done with insertion site cleansed with chloraprep x 1, chlorhexidine impgregnated disk applied, skin prep, stat lock, and tegaderm applied. no signs or symptoms of IV complications noted. no concerns voiced. re-wrapped with hoang to protect catheter.
--- NOTE | 2019-05-01 10:32 | NUR ---
Pt moved to EU 17 and placed on heart monitor. Pt denies c/o dizziness continues to report fatigue.
--- NOTE | 2019-05-01 11:30 | NUR ---
Pt transfered to 9 per w/c and Tele placed on pt for potassium infusion. Pt david well. Pt denied dizziness. Daughter at bedside and instucted to stop amiodarone, and increase Potassium to 40 meq daily and increase calcium supplement to BID. New script for theophylin 150 mg PO BID for 30 days called to [facility] pharmacy.
--- NOTE | 2019-05-01 15:45 | NUR ---
Pt discharged per w/c by daughter.
[2019-05-02 08:29] LABS: BILIRUBIN,TOTAL 0.5 mg/dL (0.0-1.0); CALCIUM 9.9 mg/dL (8.4-10.2); CREATININE, serum 1.1 (0.52-1.25); POTASSIUM 4.1 mmol/L (3.4-5.0); TOTAL PROTEIN 7.6 gm/dL (6.4-8.2)
[2019-05-02 08:46] VITALS: BP 115/50; PULSE 53; TEMP 97.8
[2019-05-03 08:36] VITALS: BP 130/53; PULSE 64; TEMP 98.1
[2019-05-04 08:34] VITALS: BP 143/54; PULSE 68; TEMP 97.8
[2019-05-05 08:32] VITALS: BP 135/64; PULSE 78; TEMP 98
[2019-05-06 08:16] VITALS: BP 129/65; PULSE 81; TEMP 97.7
[2019-05-06 08:34] LABS: BASO # 0.1 (0.0-0.2); BASO % 1.5 % (0.0-2.0); EOS # 0.5 (0.0-0.7); EOS % 5.4 % (0-4.0); GRAN # 6.2 (1.4-6.5); GRAN % 69.5 % (42.2-75.2); HEMATOCRIT 40.7 % (37.0-47.0); HEMOGLOBIN 13.2 g/dl (12.5-16.0); LYMPH # 1.4 (1.2-3.4); LYMPH % 15.1 % (20.0-51.0); MEAN CELL VOLUME 96 fl (80.0-100.0); MEAN CORPUSCULAR HEMOGLOBIN 31 pg (27.0-31.0); MEAN CORPUSCULAR HGB CONC 32 g/dl (33.0-37.0); MEAN PLATELET VOLUME 9.6 fl (7.4-10.4); MONO # 0.7 (0.1-0.6); MONO % 8.2 % (1.7-9.3); PLATELET COUNT 407 K/mm3 (130-400); RED BLOOD COUNT 4.26 M/mm3 (4.10-5.30); REDCELL DISTRIBUTION WIDTH-CV 15.4 % (11.5-14.5)
[2019-05-06 08:58] LABS: ALBUMIN 4.1 gm/dL (3.5-5.0); BILIRUBIN,TOTAL 0.7 mg/dL (0.0-1.0); C-REACTIVE PROTEIN 0.7 mg/dL (0.0-0.9); CALCIUM 9.1 mg/dL (8.4-10.2); CREATININE, serum 1.09 (0.52-1.25); POTASSIUM 3.9 mmol/L (3.4-5.0)
[2019-05-06 09:07] LABS: ERYTHROCYTE SEDIMENTATION RATE 40 mm/hr (0-30)
[~2019-05-07] VITALS: Ht 152.4 cm; Wt 62.7 kg
[2019-05-07 08:18] VITALS: BP 147/78; PULSE 88; TEMP 98
[2019-05-07 16:00] VITALS: BP 138/71; PULSE 93; TEMP 98.6
== END 2019-05-07 18:00 | disposition home or self-care (01) ==
LOC: EUO 08:00
PROVIDERS: Internal Medicine Infectious Disease; Internal Medicine Interventional Cardiology; Nurse Practitioner
DX: R78.81 Bacteremia (principal); I33.0 Acute and subacute infective endocarditis; I38 Endocarditis, valve unspecified; A41.9 Sepsis, unspecified organism
CPT/HCPCS: J0878; J3480

== ENCOUNTER → 2019-05-07 | Outpatient (CLI) | payer MEDICARE, OTHER ==
[~2019-05-07] MED LIST changes: +CEFAZOLIN SODI100 ML IV; +CEROVITE SENIOR1 TA1 PO; +CORDARONE200 MG/TAB PO; +CUBICIN 500MG500 MG IV; +INCRUSE EL62.5 MCG/A IH; +K-DUR20 MEQ PO; +MASON NATURAL325 MG PO; +PACERONE200 MG PO; +THEO-24 30300 MG/CAP PO; +TRIAMCINOLONE A15 GM TP
== END ==
LOC: ZCOL.LAB 18:01
DX: I38 Endocarditis, valve unspecified (principal); A41.9 Sepsis, unspecified organism

== ENCOUNTER → 2019-05-21 | Outpatient (CLI) | payer MEDICARE, OTHER ==
[2019-05-21 12:15] LABS: BASO # 0.1 (0.0-0.2); BASO % 1.8 % (0.0-2.0); EOS # 0.5 (0.0-0.7); EOS % 5.9 % (0-4.0); GRAN # 5.2 (1.4-6.5); GRAN % 66.1 % (42.2-75.2); HEMOGLOBIN 12.7 g/dl (12.5-16.0); LYMPH # 1.5 (1.2-3.4); LYMPH % 18.5 % (20.0-51.0); MEAN CELL VOLUME 97 fl (80.0-100.0); MEAN CORPUSCULAR HEMOGLOBIN 31 pg (27.0-31.0); MEAN CORPUSCULAR HGB CONC 32 g/dl (33.0-37.0); MEAN PLATELET VOLUME 9.7 fl (7.4-10.4); MONO # 0.6 (0.1-0.6); MONO % 7.3 % (1.7-9.3); PLATELET COUNT 345 K/mm3 (130-400); RED BLOOD COUNT 4.11 M/mm3 (4.10-5.30); REDCELL DISTRIBUTION WIDTH-CV 14.2 % (11.5-14.5)
[2019-05-21 12:25] LABS: BILIRUBIN,TOTAL 0.3 mg/dL (0.0-1.0); C-REACTIVE PROTEIN 0.8 mg/dL (0.0-0.9); CALCIUM 8.6 mg/dL (8.4-10.2); CREATININE, serum 1.06 (0.52-1.25); POTASSIUM 4.5 mmol/L (3.4-5.0); TOTAL PROTEIN 7.6 gm/dL (6.4-8.2)
[2019-05-21 12:55] LABS: ERYTHROCYTE SEDIMENTATION RATE 28 mm/hr (0-30)
== END ==
LOC: COL.LAB 11:27
PROVIDERS: Internal Medicine Infectious Disease
DX: I12.9 Hypertensive chronic kidney disease with stage 1 through stage 4 chronic kidney disease, or unspecified chronic kidney disease (principal); N18.3 Chronic kidney disease, stage 3 (moderate)

== ENCOUNTER → 2019-05-26 | Outpatient (CLI) | payer MEDICARE, OTHER | LOC: COL.LAB 16:35 | DX: I33.0 Acute and subacute infective endocarditis (principal) ==

== ENCOUNTER 2019-06-23 13:45 | Outpatient (RCR) | payer MEDICARE, OTHER | END 2019-08-11 | disposition still patient (30) | LOC: WSC | DX: R53.1 Weakness (principal) ==

== ENCOUNTER → 2020-09-08 | Outpatient (CLI) | payer MEDICARE, OTHER | LOC: COL.LAB 12:11 | DX: I33.9 Acute and subacute endocarditis, unspecified (principal) ==

== ENCOUNTER → 2021-04-25 | Outpatient (CLI) | payer MEDICARE, OTHER ==
[~2021-04-25] MED LIST changes: +CARAFATE S1 GM/10 ML PO; +COZAAR 25MG25 MG/TAB PO; +DEMADEX 20MG20 M1 PO; +ELIQUIS 2.5 PO; +FLOVENT DI50 MCG/Act IH; +MYRBETR50MG PO; +PACERONE100 MG PO; +SYNTHROID0.075 MG/T PO
== END ==
LOC: MC.RAD 09:53
DX: Z12.31 Encounter for screening mammogram for malignant neoplasm of breast (principal)

== ENCOUNTER 2021-05-11 15:22 | Outpatient (CLI) | payer MEDICARE, OTHER ==
[~2021-05-11 15:22] MED LIST changes: -CARAFATE S1 GM/10 ML PO; -COZAAR 25MG25 MG/TAB PO; -DEMADEX 20MG20 M1 PO; -ELIQUIS 2.5 PO; -FLOVENT DI50 MCG/Act IH; -MYRBETR50MG PO; -PACERONE100 MG PO; -SYNTHROID0.075 MG/T PO
[2021-05-11 15:57] VITALS: BP 120/70; PULSE 69; TEMP 98.6
[2021-05-11] MEDS ORDERED: RT ADVAIR 228 DISKUS IH (16:49)
[2021-05-11] MEDS ORDERED: ZYLOPRIM 300MG300 MG PO (16:50)
[2021-05-11] MEDS ORDERED: PLAVIX 75MG TAB75 MG PO (16:52)
[2021-05-11] MEDS ORDERED: ELIQUIS 2.5 PO (16:53)
[2021-05-11] MEDS ORDERED: FENTANYL 75MCG TD (16:54)
[2021-05-11] MEDS ORDERED: FLOVENT DI50 MCG/Act IH (16:55)
[2021-05-11] MEDS ORDERED: SYNTHROID0.075 MG/T PO (17:43)
[2021-05-11] MEDS ORDERED: MYRBETR50MG PO (17:43)
[2021-05-11] MEDS ORDERED: PACERONE100 MG PO (17:44)
== END 2021-05-11 17:50 ==
LOC: EUO 15:22
DX: M81.0 Age-related osteoporosis without current pathological fracture (principal)
CPT/HCPCS: J3489

== ENCOUNTER 2021-06-24 05:00 | Observation (INO) | payer MEDICARE, OTHER ==
[~2021-06-24] VITALS: Ht 154.9 cm; Wt 58.8 kg
[~2021-06-24 05:00] MED LIST changes: +ELIQUIS 2.5 PO; +FLOVENT DI50 MCG/Act IH; +MYRBETR50MG PO; +PACERONE100 MG PO; +SYNTHROID0.075 MG/T PO
[2021-06-24 05:36] LABS: BASO # 0.1 K/mm3 (0.0-0.2); BASO % 0.9 % (0.0-2.0); EOS # 0.4 K/mm3 (0.0-0.7); GRAN # 6.2 K/mm3 (1.4-6.5); GRAN % 67.7 % (42.2-75.2); LYMPH # 1.8 K/mm3 (1.2-3.4); LYMPH % 19.5 % (20.0-51.0); MEAN CELL VOLUME 88 fl (80.0-100.0); MEAN CORPUSCULAR HGB CONC 33 g/dl (33.0-37.0); MEAN PLATELET VOLUME 9.2 fl (7.4-10.4); MONO # 0.7 K/mm3 (0.1-0.6); MONO % 7.5 % (1.7-9.3); PLATELET COUNT 381 K/mm3 (130-400); RED BLOOD COUNT 3.23 M/mm3 (4.10-5.30); REDCELL DISTRIBUTION WIDTH-CV 13.8 % (11.5-14.5)
[2021-06-24 05:38] LABS: HEMATOCRIT 28.5 % (37.0-47.0); HEMOGLOBIN 9.5 g/dl (12.5-16.0); MEAN CORPUSCULAR HEMOGLOBIN 29 pg (27.0-31.0)
[2021-06-24 05:43] LABS: INR 1.4 (0.8-3.0); PROTHROMBIN TIME 15.6 SECONDS (9.7-12.8)
[2021-06-24 05:55] LABS: BILIRUBIN,TOTAL 0.3 mg/dL (0.2-1.2); CALCIUM 8.6 mg/dL (8.4-10.2); CREATININE, serum 1.07 mg/dL (0.57-1.11); POTASSIUM 3.2 mmol/L (3.5-4.5); TOTAL PROTEIN 6.9 gm/dL (6.2-8.1)
[2021-06-24] MEDS ORDERED: RT ADVAIR 228 DISKUS IH (06:38)
[2021-06-24] MEDS ORDERED: PLAVIX 75MG TAB75 MG PO (06:40)
[2021-06-24] MEDS ORDERED: ELIQUIS 2.5 PO (06:41)
[2021-06-24] MEDS ORDERED: DEMADEX 20MG20 M1 PO (06:42)
[2021-06-24] MEDS ORDERED: COZAAR 25MG25 MG/TAB PO (06:43)
[2021-06-24] MEDS ORDERED: CARAFATE S1 GM/10 ML PO (06:46)
[2021-06-24] MEDS ORDERED: VENTOLIN0.09 MG IH (06:50)
[2021-06-24] MEDS ORDERED: VESICARE 5MG5 MG PO (06:50)
[2021-06-24] MEDS ORDERED: BETA CAROTENE PO (06:52)
--- NOTE | 2021-06-24 11:02 | NUR ---
Patient brought up to the medical floor at approx. 0800. Patient stable at this time and daughter is at the bedside. Patient did have a BM with blood present at time of arrival. Patient speaks Wolof, but first language is Fijian. Patient's daughter has provided all medical information.
[2021-06-24 11:20] VITALS: BP 150/42; PULSE 66; TEMP 97.9
[2021-06-24 13:28] LABS: HEMATOCRIT 29.8 % (37.0-47.0); HEMOGLOBIN 9.4 g/dl (12.5-16.0)
--- NOTE | 2021-06-24 15:51 | NUR ---
Patient has had multiple bowel movements with blood present. Blood is bright red. Patient denies any pain. Patient is on a clear liquid diet and is tolerating it well. IV potassium was initiated but it was too painful for the patient to continue with. Route change was requested and patient has been tolerating this well.
[2021-06-24 15:52] VITALS: BP 103/74; PULSE 85; TEMP 97.9
[2021-06-24 19:04] LABS: HEMATOCRIT 29.4 % (37.0-47.0); HEMOGLOBIN 9.6 g/dl (12.5-16.0)
[2021-06-24 19:23] VITALS: BP 123/92; PULSE 87; TEMP 98.2
--- NOTE | 2021-06-24 19:37 | NUR ---
REFUSED BREATHING TX
[2021-06-24 23:21] VITALS: BP 142/59; PULSE 83; TEMP 98.3
--- NOTE | 2021-06-24 23:36 | NUR ---
ALERT AND OX3. DENIES MINERVA, CHEST PAIN OR DIZZY. NO STOOLS NOTED OR REPORTED THIS EVENING. HEMOGLOBIN STABLE. OCCULT POS. AWAITING GI TO ROUND ON HER CONSULTED. BEDSIDE COMMODE USED. REPORTS NO PAIN. READING A BOOK IN BED. PM MEDS GIVEN.CALL LIGHT WI REACH. NEEDS MET.
[2021-06-25 04:09] VITALS: BP 135/49; PULSE 73; TEMP 97.9
[2021-06-25 07:00] LABS: BASO # 0.1 K/mm3 (0.0-0.2); BASO % 1.3 % (0.0-2.0); EOS # 0.5 K/mm3 (0.0-0.7); EOS % 5.7 % (0-4.0); GRAN # 5.1 K/mm3 (1.4-6.5); GRAN % 64.1 % (42.2-75.2); LYMPH # 1.5 K/mm3 (1.2-3.4); LYMPH % 19.5 % (20.0-51.0); MEAN CORPUSCULAR HGB CONC 31 g/dl (33.0-37.0); MEAN PLATELET VOLUME 9.5 fl (7.4-10.4); MONO # 0.7 K/mm3 (0.1-0.6); MONO % 9.1 % (1.7-9.3); PLATELET COUNT 359 K/mm3 (130-400); REDCELL DISTRIBUTION WIDTH-CV 13.9 % (11.5-14.5)
[2021-06-25 07:10] LABS: HEMATOCRIT 27.1 % (37.0-47.0); HEMOGLOBIN 8.5 g/dl (12.5-16.0); MEAN CELL VOLUME 93 fl (80.0-100.0); MEAN CORPUSCULAR HEMOGLOBIN 29 pg (27.0-31.0)
[2021-06-25 07:18] LABS: CALCIUM 8.3 mg/dL (8.4-10.2); CREATININE, serum 0.81 mg/dL (0.57-1.11); POTASSIUM 3.8 mmol/L (3.5-4.5)
[2021-06-25 07:32] VITALS: BP 130/46; PULSE 89; TEMP 97.4
[2021-06-25 08:39] VITALS: BP 158/47; PULSE 91; TEMP 97.8
--- NOTE | 2021-06-25 09:27 | NUR ---
Patient laying in bed with daughter at the bedside. Patient does not have any complaints/concerns this morning. Patient continues to have NS running at 75mL/hr. Patient is using bedside commode.
[2021-06-25 11:20] VITALS: BP 126/58; PULSE 69; TEMP 98.3
[2021-06-25 13:32] VITALS: BP 169/97; PULSE 79; TEMP 97.5
[2021-06-25 15:48] VITALS: BP 137/34; PULSE 66; TEMP 98.3
--- NOTE | 2021-06-25 17:22 | NUR ---
Patient remains on clear liquid diet and is tolerating it well. Patient has had 2 bloody bowel movements today. Patient denies any dizzness, pain, SOB. Overall, patient has done well today.
[2021-06-25 18:57] LABS: HEMATOCRIT 29.7 % (37.0-47.0); HEMOGLOBIN 9.2 g/dl (12.5-16.0)
--- NOTE | 2021-06-25 22:03 | NUR ---
ALERT AND OX4. DENIES SOA, CHEST PAIN OR DIZZY. CONT TO PASS SOME BLOOD W STOOLS BUT MORE FORMED. PM MEDS GIVEN. DAUGHTER AT BEDSIDE FOR VISIT. POSSIBLE DC TOMORROW IF REMAINS STABLE. HEMOGLOBIN STABLE. REPORTS NO CRAMPING OF ABDOMEN. POC DISCUSSED. CALL LIGHT WI REACH.
[2021-06-26 00:26] VITALS: BP 135/34; PULSE 68; TEMP 97.8
--- NOTE | 2021-06-26 05:26 | NUR ---
RESTED THROUGH THE NIGHT WITHOUT INCIDENT. SMALL STOOL SEMI FORMED W SOME BLOOD. DENIES SOA OR DIZZY. HEMOGLOBIN TO BE RECHECKED THIS AM. LAST CHECK WAS STABLE AT 9.6.
[2021-06-26 06:38] LABS: BASO # 0.1 K/mm3 (0.0-0.2); BASO % 1.3 % (0.0-2.0); EOS # 0.4 K/mm3 (0.0-0.7); EOS % 5.3 % (0-4.0); GRAN # 5.2 K/mm3 (1.4-6.5); GRAN % 65.7 % (42.2-75.2); LYMPH # 1.4 K/mm3 (1.2-3.4); LYMPH % 18.2 % (20.0-51.0); MEAN CELL VOLUME 91 fl (80.0-100.0); MEAN CORPUSCULAR HGB CONC 32 g/dl (33.0-37.0); MEAN PLATELET VOLUME 9.4 fl (7.4-10.4); MONO # 0.7 K/mm3 (0.1-0.6); MONO % 9.1 % (1.7-9.3); PLATELET COUNT 353 K/mm3 (130-400); RED BLOOD COUNT 3.11 M/mm3 (4.10-5.30); REDCELL DISTRIBUTION WIDTH-CV 14.2 % (11.5-14.5)
[2021-06-26 06:42] LABS: HEMATOCRIT 28.4 % (37.0-47.0); MEAN CORPUSCULAR HEMOGLOBIN 29 pg (27.0-31.0)
[2021-06-26 06:54] LABS: CALCIUM 9.1 mg/dL (8.4-10.2); CREATININE, serum 0.83 mg/dL (0.57-1.11)
[2021-06-26 08:45] VITALS: BP 151/50; PULSE 69; TEMP 97.6
--- NOTE | 2021-06-26 09:30 | NUR ---
ASSESSMENT COMPLETE. PT COOPERATIVE WITH CARES. PT RESTING IN BED WITH DAUGHTERS BY HER SIDE. PT DENIES PAIN, PALPITATIONS, SOB OR DIZZINESS. PT EXCITED TO BE DISCHARGING HOME. PT'S DAUGHTER ASSISTED HER TO THE RESTROOM, WHERE PT HAD A LARGE BM WITH A TINGE OF BLOOD. PT'S DAUGHTER INFORMED PHYSICIAN WHEN HE CAME IN TO TALK WITH PT AND ASSESS HER. PHYSICIAN TOLD PT AND FAMILY HER DM'S MAY BE LIKE THAT FOR A COUPLE OF DAYS. PT STATES SHE HAS NO OTHER NEEDS AT THIS TIME. CALL LIGHT WITHIN REACH.
[2021-06-26 12:13] VITALS: BP 167/59; PULSE 66; TEMP 98
--- NOTE | 2021-06-26 13:25 | NUR ---
PT DISCHARGING HOME. IV DISCONTINUED. IV CATHETER INTACT. TELE REMOVED. I WENT OVER DISCHARGE PAPERWORK WITH PT AND HER DAUGHTER AND ANSWERED ANY QUESTIONS AND CONCERNS. PT DENIES PAIN, PALPITATIONS, SOB OR DIZZINESS. PT STATES SHE HAS NO OTHER NEEDS AT THIS TIME. PT ESCORTED VIA WHEELCHAIR BY MYSELF, ACCOMPANIED BY DAUGHTER.
== END 2021-06-26 13:25 | disposition home or self-care (01) ==
LOC: COL.ER 05:00 → MEDICAL 06:32 → EDBEDREQ 06:34 → MEDICAL 06-26 13:25
PROVIDERS: Personal Emergency Response Attendant; Physician Assistant; ADMIT Student in an Organized Health Care Education/Training Program
DX: K92.1 Melena (principal); I13.0 Hypertensive heart and chronic kidney disease with heart failure and stage 1 through stage 4 chronic kidney disease, or unspecified chronic kidney disease; N18.9 Chronic kidney disease, unspecified; I50.30 Unspecified diastolic (congestive) heart failure; D63.1 Anemia in chronic kidney disease; F03.90 Unspecified dementia, unspecified severity, without behavioral disturbance, psychotic disturbance, mood disturbance, and anxiety; J44.9 Chronic obstructive pulmonary disease, unspecified; I48.91 Unspecified atrial fibrillation; E03.9 Hypothyroidism, unspecified; E87.6 Hypokalemia; I25.10 Atherosclerotic heart disease of native coronary artery without angina pectoris; I73.9 Peripheral vascular disease, unspecified; Z79.899 Other long term (current) drug therapy; K21.9 Gastro-esophageal reflux disease without esophagitis; R33.9 Retention of urine, unspecified; F41.9 Anxiety disorder, unspecified; M10.9 Gout, unspecified; M19.90 Unspecified osteoarthritis, unspecified site; Z79.890 Hormone replacement therapy; Z95.818 Presence of other cardiac implants and grafts; Z87.891 Personal history of nicotine dependence; Z79.01 Long term (current) use of anticoagulants; Z79.02 Long term (current) use of antithrombotics/antiplatelets; Z99.81 Dependence on supplemental oxygen
CPT/HCPCS: 99223-AI; 99232-AI; G0378; J3480; J7030

== ENCOUNTER → 2021-06-30 | Outpatient (CLI) | payer MEDICARE, OTHER ==
[~2021-06-30] MED LIST changes: +CARAFATE S1 GM/10 ML PO; +COZAAR 25MG25 MG/TAB PO; +DEMADEX 20MG20 M1 PO
== END ==
LOC: COL.LAB 10:51
DX: I33.9 Acute and subacute endocarditis, unspecified (principal)

== ENCOUNTER → 2021-07-01 | Outpatient (CLI) | payer MEDICARE, OTHER ==
[2021-07-01 11:29] LABS: HEMATOCRIT 30.5 % (37.0-47.0); HEMOGLOBIN 9.8 g/dl (12.5-16.0)
== END ==
LOC: COL.LAB 10:47
PROVIDERS: Physician Assistant
DX: D64.9 Anemia, unspecified (principal); K92.2 Gastrointestinal hemorrhage, unspecified

== ENCOUNTER 2021-09-14 08:57 | Outpatient (CLI) | payer MEDICARE, OTHER ==
[~2021-09-14] VITALS: Ht 155 cm; Wt 70.5 kg
[2021-09-14] VITALS (7 sets, daily range): BP systolic 116–126; BP diastolic 42–58; PULSE 70–76; TEMP 98.2
[2021-09-14 09:28] LABS: BASO # 0.1 K/mm3 (0.0-0.2); EOS # 0.3 K/mm3 (0.0-0.7); EOS % 3.5 % (0.0-4.0); GRAN # 5.8 K/mm3 (1.4-6.5); GRAN % 71.2 % (42.2-75.2); LYMPH # 1.3 K/mm3 (1.2-3.4); LYMPH % 16.6 % (20.0-51.0); MEAN CELL VOLUME 88 fl (80.0-100.0); MEAN CORPUSCULAR HGB CONC 31 g/dl (33.0-37.0); MONO # 0.6 K/mm3 (0.1-0.6); MONO % 7.5 % (1.7-9.3); PLATELET COUNT 403 K/mm3 (130-400); RED BLOOD COUNT 3.03 M/mm3 (4.10-5.30); REDCELL DISTRIBUTION WIDTH-CV 14.7 % (11.5-14.5)
[2021-09-14 09:29] LABS: HEMATOCRIT 26.5 % (37.0-47.0); HEMOGLOBIN 8.3 g/dl (12.5-16.0); MEAN CORPUSCULAR HEMOGLOBIN 27 pg (27-31)
[2021-09-14 09:34] LABS: INR 1.3 (0.8-3.0); PROTHROMBIN TIME 14.7 SECONDS (9.7-12.8)
[2021-09-14 09:45] LABS: CALCIUM 8.3 mg/dL (8.4-10.2); CREATININE, serum 1.14 mg/dL (0.57-1.11); POTASSIUM 4.3 mmol/L (3.5-4.5)
[2021-09-14] MEDS ORDERED: FLONASEALLERGY NS (10:01)
[2021-09-14] MEDS ORDERED: ASPIRIN E.C. 8181 MG PO (10:01)
[2021-09-14] MEDS ORDERED: INCRUSE EL62.5 MCG/A IH (10:02)
[2021-09-14] MEDS ORDERED: MAGNESIUM250 M1 PO (10:03)
--- NOTE | 2021-09-14 11:15 | NUR ---
Report from Lillian ELIAS. Pt resting quietly, denies pain and needs at this time. VSS
--- NOTE | 2021-09-14 13:00 | NUR ---
INT discontinued intact. One assist to dress and ambulate to restroom. Dishcharge instructions given to Alejandra (daughter) and pt. Transferred by private wc to car
== END 2021-09-14 13:05 | disposition home or self-care (01) ==
LOC: COL.RAD 08:57
PROVIDERS: Internal Medicine Interventional Cardiology
DX: I34.0 Nonrheumatic mitral (valve) insufficiency (principal); I11.9 Hypertensive heart disease without heart failure; I48.0 Paroxysmal atrial fibrillation; I73.9 Peripheral vascular disease, unspecified; Z95.0 Presence of cardiac pacemaker
CPT/HCPCS: J2704

== ENCOUNTER 2023-01-04 14:52 | Emergency (ER) | payer MEDICARE, OTHER ==
[~2023-01-04] VITALS: Ht 165.1 cm; Wt 59.1 kg
[~2023-01-04 14:52] MED LIST changes: +MAGNESIUM250 M1 PO
[2023-01-04 14:54] VITALS: TEMP 98.1
[2023-01-04] MEDS ORDERED: PERCOCET 325 MG1 TAB PO (18:32)
[2023-01-04 18:49] VITALS: BP 134/77; PULSE 76
[2023-01-07] MEDS ORDERED: JARDIANCE10 (19:12)
[2023-01-07] MEDS ORDERED: DOXYCYCLINE HY100 MG PO (19:14)
[2023-01-07] MEDS ORDERED: OXYCONTIN 20MG20 MG PO (19:15)
[2023-01-07] MEDS ORDERED: PERCOCET 325 MG1 TAB PO (19:16)
[2023-01-07] MEDS ORDERED: TRELEGY ELLIPT1 EACH IH (19:19)
== END 2023-01-04 19:09 | disposition home or self-care (01) ==
LOC: COL.ER 14:52
DX: S81.011A Laceration without foreign body, right knee, initial encounter (principal); S81.812A Laceration without foreign body, left lower leg, initial encounter; S70.10XA Contusion of unspecified thigh, initial encounter; J44.9 Chronic obstructive pulmonary disease, unspecified; Z99.81 Dependence on supplemental oxygen; Z28.310 Unvaccinated for COVID-19; W01.0XXA Fall on same level from slipping, tripping and stumbling without subsequent striking against object, initial encounter; Y92.26 Movie house or cinema as the place of occurrence of the external cause